=== PATIENT | female | born 1960 | race Two or more races ===

== ENCOUNTER 2018-02-04 08:13 | Outpatient (CLI) | payer OTHER ==
[~2018-02-04 08:13] MED LIST: CLONAZEPAM0.5 MG; OMEPRAZOLE40 MG PO; ZANAFLEX4 M1; ZANTAC300 MG PO
== END 2018-02-04 11:44 | disposition home or self-care (01) ==
LOC: NUCLEAR 08:13
DX: I25.89 Other forms of chronic ischemic heart disease (principal)
CPT/HCPCS: 78452; 93017; A9500

== ENCOUNTER 2018-02-13 15:02 | Outpatient (CLI) | payer OTHER | END 2018-02-13 15:15 | disposition home or self-care (01) | LOC: MAMO-SONO 15:02 | DX: N60.11 Diffuse cystic mastopathy of right breast (principal); N60.12 Diffuse cystic mastopathy of left breast; Z12.31 Encounter for screening mammogram for malignant neoplasm of breast ==

== ENCOUNTER 2018-08-20 07:10 | Outpatient (CLI) | payer OTHER ==
[~2018-08-20] VITALS: Ht 152.4 cm; Wt 77.1 kg
== END 2018-08-20 07:25 | disposition home or self-care (01) ==
LOC: OFIC 805 07:10
DX: R49.0 Dysphonia (principal); J37.0 Chronic laryngitis; J31.0 Chronic rhinitis; K11.5 Sialolithiasis

== ENCOUNTER 2018-12-10 10:29 | Outpatient (CLI) | payer OTHER | END 2018-12-10 10:55 | disposition home or self-care (01) | LOC: LAB 10:29 | DX: J11.1 Influenza due to unidentified influenza virus with other respiratory manifestations (principal) ==

== ENCOUNTER 2020-01-07 08:05 | Outpatient (CLI) | payer OTHER | END 2020-01-07 15:00 | disposition home or self-care (01) | LOC: LAB 08:05 | DX: D64.0 Hereditary sideroblastic anemia (principal); J11.1 Influenza due to unidentified influenza virus with other respiratory manifestations ==

== ENCOUNTER 2020-06-09 08:01 | Day surgery (SDC) | payer OTHER ==
[2020-06-09] MEDS ORDERED: CARAFATE1 GM PO (12:02)
== END 2020-06-09 14:00 | disposition home or self-care (01) ==
LOC: AMB-ENDOS 08:01 → ADM 13:45 → AMB-ENDOS 13:45
PROVIDERS: ATTEND Surgery
DX: D12.3 Benign neoplasm of transverse colon (principal); D12.4 Benign neoplasm of descending colon

== ENCOUNTER 2021-02-02 06:46 | Day surgery (SDC) | payer OTHER ==
[~2021-02-02 06:46] MED LIST changes: +CARAFATE1 GM PO
== END 2021-02-02 11:01 | disposition home or self-care (01) ==
LOC: AMB-ENDOS 06:46
PROVIDERS: ATTEND Surgery
DX: D13.2 Benign neoplasm of duodenum (principal); K29.50 Unspecified chronic gastritis without bleeding; Z20.822 Contact with and (suspected) exposure to COVID-19

== ENCOUNTER → 2021-07-19 | Outpatient (CLI) | payer OTHER | END | disposition home or self-care (01) | LOC: PPH VACUNA 08:00 | DX: Z23 Encounter for immunization (principal) ==

== ENCOUNTER 2022-08-17 07:11 | Outpatient (CLI) | payer OTHER | END 2022-08-17 07:18 | disposition home or self-care (01) | LOC: NUCLEAR 07:11 | PROVIDERS: ATTEND Internal Medicine Cardiovascular Disease | DX: R07.89 Other chest pain (principal); I25.10 Atherosclerotic heart disease of native coronary artery without angina pectoris; Z88.0 Allergy status to penicillin; Z88.6 Allergy status to analgesic agent ==

== ENCOUNTER 2023-03-27 09:12 | Outpatient (CLI) | payer OTHER | END 2023-03-27 09:14 | disposition home or self-care (01) | LOC: NUCLEAR 09:12 | PROVIDERS: ATTEND Internal Medicine | DX: R00.2 Palpitations (principal); I11.9 Hypertensive heart disease without heart failure; E78.2 Mixed hyperlipidemia ==

== ENCOUNTER → 2024-01-10 | Outpatient (CLI) | payer OTHER | END | disposition home or self-care (01) | LOC: NUCLEAR 03-28 08:00 | PROVIDERS: ATTEND Internal Medicine Cardiovascular Disease | DX: Q21.19 Other specified atrial septal defect (principal); Z99.2 Dependence on renal dialysis; Q21.12 Patent foramen ovale ==